=== PATIENT | female | born 1995 | race Caucasian/White ===

== ENCOUNTER 2022-12-30 08:16 | Outpatient (CLI) | payer OTHER, SELFPAY ==
[2022-12-30 13:57] LABS: C Reactive Protein* < 0.5 mg/dL (0.5-1.0)
[2022-12-30 14:07] LABS: Vitamin D 25 Hydroxy* 29 ng/mL (30-80)
[2022-12-31 20:37] LABS: Prolactin 12.4 ng/mL (2.8-29.2)
== END 2022-12-30 08:17 | disposition home or self-care (01) ==
PROVIDERS: PCP Physician Assistant Medical; Visit Provider Physician Assistant Medical
DX: E28.2 Polycystic ovarian syndrome (principal); Z13.21 Encounter for screening for nutritional disorder; F41.9 Anxiety disorder, unspecified
CPT/HCPCS: 82306; 82533; 84146; 84443; 86140

== ENCOUNTER 2023-08-12 07:48 | Outpatient (CLI) | payer OTHER, SELFPAY | END 2023-08-12 07:49 | disposition home or self-care (01) | LOC: NFLDREF 08-13 07:39 | PROVIDERS: PCP Physician Assistant Medical; Referring Provider Physician Assistant Medical; Visit Provider Physician Assistant Medical | DX: Z00.00 Encounter for general adult medical examination without abnormal findings (principal); E28.2 Polycystic ovarian syndrome; E88.81 Metabolic syndrome and other insulin resistance; L68.0 Hirsutism | CPT/HCPCS: 80053; 80061; 82533; 83525; 84146; 84443 ==

== ENCOUNTER 2024-11-08 08:17 | Outpatient (CLI) | payer OTHER, SELFPAY | END 2024-11-08 08:18 | disposition home or self-care (01) | PROVIDERS: PCP Physician Assistant Medical; Visit Provider Physician Assistant Medical | DX: E28.2 Polycystic ovarian syndrome (principal); E55.9 Vitamin D deficiency, unspecified; R79.89 Other specified abnormal findings of blood chemistry; F41.9 Anxiety disorder, unspecified; Z13.0 Encounter for screening for diseases of the blood and blood-forming organs and certain disorders involving the immune mechanism; Z13.1 Encounter for screening for diabetes mellitus; Z13.6 Encounter for screening for cardiovascular disorders | CPT/HCPCS: 80053; 80061; 82306; 82533; 82670; 84146; 84403; 84443 ==